=== PATIENT | female | born 1995 | race American Indian/Alaskan Native ===

== ENCOUNTER 2016-06-19 11:54 | Emergency (ER) | payer OTHER ==
[2016-06-19 12:54] VITALS: BP 151/118
--- NOTE | 2016-06-19 14:09 | Emergency Department Report ---
HPI - General Chief Complaint: Pain General Time Seen by Provider: 06/19/16 14:05 - HPI HPI: This is a 20-year-old female who presents to ED complaining of right buttock pain 2 weeks. Patient states pain is localized to her right buttock area. Patient describes pain as throbbing in nature and with intermittent throughout the day. Patient rates been about as 5 out of 10 intensity. Patient denies any radiation down her legs or Upper back. She denies any recent fall or injury. Patient states she took Motrin in the past couple of days gave her some minimal relief. Patient denies fever/chills/vomitus/ abdominal pain, chest pain, shortness of breath or any other problems. ED Past Medical Hx - Past Medical History Hx Hypertension: No Hx Congestive Heart Failure: No Hx Diabetes: No Hx Deep Vein Thrombosis: No Hx Renal Disease: No Hx Sickle Cell Disease: No Hx Seizures: No Hx Asthma: No Hx COPD: No Hx HIV: No - Social History Smoking Status: Light Tobacco Smoker Substance Use Type: Alcohol - Medications Home Medications: Home Medications Medication Instructions Recorded Confirmed Last Taken Type Cephalexin [Keflex] 500 mg PO Q8HR #21 cap 12/09/15 Unknown Rx Cyclobenzaprine [Flexeril] 10 mg PO TID PRN #24 tablet 06/19/16 Unknown Rx Ibuprofen [Motrin 800 MG tab] 800 mg PO TID #40 tablet 06/19/16 Unknown Rx ED Review of Systems ROS: Stated complaint: UPPER THIGH/BUTTOCKS PAIN Other details as noted in HPI Constitutional: denies: chills, fever Eyes: denies: eye pain, eye discharge, vision change ENT: denies: ear pain, throat pain Respiratory: denies: cough, shortness of breath, wheezing Cardiovascular: denies: chest pain, palpitations Endocrine: no symptoms reported Gastrointestinal: denies: abdominal pain, nausea, diarrhea Genitourinary: denies: urgency, dysuria, discharge Musculoskeletal: denies: back pain, joint swelling, arthralgia Skin: denies: rash, lesions Neurological: denies: headache, weakness, paresthesias Psychiatric: denies: anxiety, depression Hematological/Lymphatic: denies: easy bleeding, easy bruising Physical Exam - Physical Exam Vital Signs: Vital Signs 06/19/16 12:43 Temperature 97.6 F Pulse Rate 73 Respiratory 20 Rate Blood Pressure 151/118 O2 Sat by Pulse 100 Oximetry Physical Exam: GENERAL: Alert and oriented x3, no apparent distress, Normal Gait, atraumatic. HEAD: Head is normocephalic and a-traumatic. EYES: Extra ocular muscles are intact. Pupils are equal, round, and reactive to light and accommodation. NECK: Supple. Non edematous, No carotid bruits. No lymphadenopathy or thyromegaly. LUNGS: Symetrical with respiration, No wheezing, no rales or crackles, CTAB. HEART: S1, S2 present, regular rate and rhythm without murmur, no rubs, no gallops. ABDOMEN: No organomegaly was noted,Positive bowel sounds, soft, and non- distended. . Nontender to palpation on all Quadrants, NO CVA tenderness. EXTREMITIES/MUSCULOSKELETAL: No cyanosis, clubbing, rash, lesions or edema. Full ROM bilaterally. UE/LE Pulses 2+ bilaterally. LE and UE 5+ strength bilaterally. Mild tenderness to palpation of right maximum clitoris. No cervical spine tenderness or spinal tenderness. Back has full range of motion. Patient able to bend down without difficulty. Patient able to lift right leg without difficulty. NEUROLOGIC: No focal Deficit, Cranial nerves II through XII are grossly intact. No loss of sensation, PSYCHIATRIC: Mood is congruent with affect, denies suicidal or homicidal ideations. SKIN: Warm and dry, No lesions, No ulceration or induration present. ED Course Vital Signs 06/19/16 12:43 Temperature 97.6 F Pulse Rate 73 Respiratory 20 Rate Blood Pressure 151/118 O2 Sat by Pulse 100 Oximetry ED Medical Decision Making - Medical Decision Making 20-year-old female presents with myalgia of the right buttock ED course: She received 800 mg of Motrin. Discussed home medication of Flexeril and Motrin. Discussed to take medication as discussed. Discussed drowsiness effect of multiple Flexeril to take only at night. Discussed proper exercises. Discussed not sitting for long periods of time. Vital signs stable. Patient is in no acute or respiratory distress. Critical care attestation.: If time is entered above; I have spent that time in minutes in the direct care of this critically ill patient, excluding procedure time. ED Disposition Clinical Impression: Myalgia, Right buttock pain Disposition: DISCHARGED TO HOME OR SELFCARE Is pt being admited?: No Does the pt Need Aspirin: No Condition: Stable Instructions: Musculoskeletal Pain (ED), Trigger Point Pain (ED), Heat Pack Application (ED) Prescriptions: Cyclobenzaprine [Flexeril] 10 mg PO TID PRN #24 tablet PRN Reason: Muscle Spasm Ibuprofen [Motrin 800 MG tab] 800 mg PO TID #40 tablet Referrals: PRIMARY CAREMD [Primary Care Provider] - 3-5 Days ROSY SCOTT MD [Referring] - 3-5 Days ALONA BAEZ MD [Referring] - 3-5 Days LORENZO COPE MD [Referring] - 3-5 Days LINDSAY THOMSON MD [Staff Physician] - 3-5 Days Forms: Work/School Release Form(ED) Time of Disposition: 14:51
[2016-06-19] MEDS ORDERED: MOTRIN PO ONE (14:44)
== END 2016-06-19 15:02 | disposition home or self-care (01) ==
LOC: ED 11:54
DX: M79.1 Myalgia (principal); Z72.0 Tobacco use
CPT/HCPCS: 99282

== ENCOUNTER 2021-10-15 07:09 | Emergency (ER) | payer MEDICAID ==
[2021-10-15 07:16] VITALS: BP 150/90
--- NOTE | 2021-10-15 08:05 | Emergency Department Report ---
Minor Respiratory - HPI Chief Complaint: Upper Respiratory Infection Stated Complaint: POSS ALLERGIC REACTION Time Seen by Provider: 10/15/21 08:03 Duration: 1 Day Pain Location: Facial, Throat Severity: mild Minor Respiratory: Yes Rhinorrhea, Yes Able to Tolerate Fluids, No Sore Throat, No Ear Pain, No Cough, No Sick Contacts, No Hemoptysis, No Chest Pain, No Shortness of Breath, No Fever Other History: 26 yo ate pizza last night and developed a sensation of facial swelling and runny nose. Took benadryl last night and this AM. no cough/no fever/ no chills/ no sob/no cp. On exam in triage ABC intact. No facial swelling/hives or urticaria. ED Review of Systems ROS: Stated complaint: POSS ALLERGIC REACTION Other details as noted in HPI Comment: All other systems reviewed and negative ED Past Medical Hx - Past Medical History Hx Hypertension: No Hx Congestive Heart Failure: No Hx Diabetes: No Hx Deep Vein Thrombosis: No Hx Renal Disease: No Hx Sickle Cell Disease: No Hx Seizures: No Hx Asthma: No Hx COPD: No Hx HIV: No - Social History Smoking Status: Light Tobacco Smoker Substance Use Type: Alcohol - Medications Home Medications: Home Medications Medication Instructions Recorded Confirmed Last Taken Type Famotidine [Pepcid] 20 mg PO DAILY #30 tablet 10/15/21 Unknown Rx diphenhydrAMINE [Benadryl CAP] 25 mg PO Q8HR PRN #20 capsule 10/15/21 Unknown Rx predniSONE [Deltasone] 20 mg PO DAILY #5 tablet 10/15/21 Unknown Rx Minor Respiratory Exam - Exam General: Vital signs noted. No distress. Alert and acting appropriately. HEENT: Yes Moist Mucous Membranes, No Pharyngeal Erythema, No Pharyngeal Exudates, No Rhinorrhea, No Conjuctival Injection, No Frontal Tenderness, No Maxillary Tenderness Ear: Neither TM Bulge, Neither TM Erythema, Neither EAC Pain, Neither EAC Discharge Neck: Yes Supple, No Adenopathy Lungs: Yes Good Air Exchange, No Wheezes, No Ronchi, No Stridor, No Cough, No Labored Respirations, No Retractions, No Use of Accessory Muscles, No Other Abnormal Lung Sounds Heart: Yes Regular, No Murmur Abdomen: Yes Normal Bowel Sounds, No Tenderness, No Peritoneal Signs Skin: No Rash, No Edema Neurologic: Alert and oriented, no deficits. Musculoskeletal: Unremarkable. ED Course Vital Signs 10/15/21 07:15 Temperature 98 F Pulse Rate 84 Respiratory 14 Rate Blood Pressure 150/90 [Left] O2 Sat by Pulse 98 Oximetry ED Medical Decision Making - Medical Decision Making Vital Signs 10/15/21 07:15 Temperature 98 F Pulse Rate 84 Respiratory 14 Rate Blood Pressure 150/90 [Left] O2 Sat by Pulse 98 Oximetry medicated with benadryl, pepcid and prednisone pt educated on allergic reaction treatment and follow up for testing for definitive cause pt dc home with dc plan of care. she verbalizes understanding of dc plan of care including diet, meds, activity and follow up. Ambulatory on dc with no symptoms - Differential Diagnosis Possible allergic reaction Critical care attestation.: If time is entered above; I have spent that time in minutes in the direct care of this critically ill patient, excluding procedure time. ED Disposition Clinical Impression: Allergic reaction Qualifiers: Encounter type: initial encounter Qualified Code(s): T78.40XA - Allergy, unspecified, initial encounter Disposition: HOME / SELF CARE / HOMELESS Is pt being admited?: No Does the pt Need Aspirin: No Condition: Stable Instructions: Allergies, Adult Additional Instructions: meds as ordered followup with pcp in 72 hours referral below diet and activity as tolerated Prescriptions: diphenhydrAMINE [Benadryl CAP] 25 mg PO Q8HR PRN #20 capsule PRN Reason: Itching predniSONE [Deltasone] 20 mg PO DAILY #5 tablet Famotidine [Pepcid] 20 mg PO DAILY #30 tablet Referrals: VLADISLAV COMER MD [Primary Care Provider] - 3-5 Days Forms: Work/School Release Form(ED) Time of Disposition: 11:05
[2021-10-15] MEDS ORDERED: FAMOTIDINE 20 MG TAB PO ONE ×2 (08:23→11:03)
[2021-10-15] MEDS ORDERED: diphenhydrAMINE 25 MG/10 ML ORAL LIQUID PO ONE ×2 (08:23→11:03)
[2021-10-15] MEDS ORDERED: predniSONE 20 MG TAB PO ONE ×2 (08:23→11:03)
== END 2021-10-15 11:42 | disposition home or self-care (01) ==
LOC: ED 07:09
DX: T78.40XA Allergy, unspecified, initial encounter (principal); F17.290 Nicotine dependence, other tobacco product, uncomplicated; X58.XXXA Exposure to other specified factors, initial encounter
CPT/HCPCS: 99283; Q0163